=== PATIENT | female | born 1980 | race Caucasian/White ===

== ENCOUNTER 2019-03-30 15:35 | Emergency (ER) | payer OTHER ==
[~2019-03-30] VITALS: Ht 170.2 cm; Wt 90.7 kg
[2019-03-30 15:42] VITALS: BP 133/86
== END 2019-03-30 17:58 | disposition left against medical advice (07) ==
LOC: ER 15:35
DX: R07.89 Other chest pain (principal); R51 Headache; E03.9 Hypothyroidism, unspecified; Z88.0 Allergy status to penicillin; Z91.040 Latex allergy status
CPT/HCPCS: 71046; 93005